=== PATIENT | male | born 1985 ===

== ENCOUNTER 2018-05-23 11:53 | Day surgery (SDC) | payer OTHER ==
[~2018-05-23] VITALS: Ht 180.3 cm; Wt 95.3 kg
[2018-05-23] VITALS (11 sets, daily range): BP systolic 94–138; BP diastolic 51–91
[~2018-05-23 11:53] MED LIST: Cefazolin 2GM/50ML dext iso,osmotic IVPB IV ONE; IBUP-1984 PO; famotidine 20mg tablet PO ONE; ringers solution, lacted 1,000 ML IV SCH; vancomycin inj 1,500 MG in normal saline 300ml IV soln IV ONE
[2018-05-23] MEDS ORDERED: ceFAZolin 1000mg inj ONE (12:59)
[2018-05-23] MEDS ORDERED: ringers solution, lacted 1,000 ML IV SCH (13:27)
[2018-05-23] MEDS ORDERED: morphine 4 MG/ML inj SYRINge IV PRN ×2 (13:30)
[2018-05-23] MEDS ORDERED: proCHLORperazine 10 MG/2 ml inj IV PRN (13:30)
[2018-05-23] MEDS ORDERED: ondansetron/PF 4mg/2ml inj IV PRN (13:30)
[2018-05-23] MEDS ORDERED: meperidine/PF 25mg/ml syringe IV PRN ×3 (13:30)
[2018-05-23] MEDS ORDERED: sevoflurane 250ml liquid IH ONE (13:55)
[2018-05-23] MEDS ORDERED: fentaNYL/PF 50MCG/1 ML 2ML syringe ONE (14:06)
[2018-05-23] MEDS ORDERED: MIDAZolam 5mg/5ml vial ONE (14:06)
[2018-05-23] MEDS ORDERED: LIDOcaine 1%/PF 5ML 10 MG/ML VIAL ONE (15:54)
[2018-05-23] MEDS ORDERED: propofol inj 20 ML IV ONE (15:54)
[2018-05-23] MEDS ORDERED: ondansetron/PF 4mg/2ml inj ONE (15:55)
[2018-05-23] MEDS ORDERED: dexamethasone sod phosphate 4mg/ml inj. ONE (15:55)
== END 2018-05-23 17:32 ==
LOC: PAS 11:53
PROVIDERS: ATTEND Orthopaedic Surgery
DX: M25.312 Other instability, left shoulder (principal); M19.012 Primary osteoarthritis, left shoulder; G89.18 Other acute postprocedural pain; B19.20 Unspecified viral hepatitis C without hepatic coma; Z79.1 Long term (current) use of non-steroidal anti-inflammatories (NSAID); Z87.891 Personal history of nicotine dependence
CPT/HCPCS: 23120; 64450; A4565; C1713; J0690; J1100; J2001; J2250; J2405; J2704; J3010; J3370; J7120; A7000